=== PATIENT | female | born 1970 | race Caucasian/White ===

== ENCOUNTER → 2018-05-06 | Outpatient (CLI) | payer OTHER | LOC: M.RAD 15:12 | DX: Z12.31 Encounter for screening mammogram for malignant neoplasm of breast (principal) ==

== ENCOUNTER → 2019-05-11 | Outpatient (CLI) | payer OTHER | LOC: M.RAD 15:09 | DX: Z12.31 Encounter for screening mammogram for malignant neoplasm of breast (principal) ==

== ENCOUNTER 2019-11-05 17:28 | Emergency (ER) | payer OTHER ==
[~2019-11-05] VITALS: Ht 154.9 cm; Wt 72.6 kg
[2019-11-05] MEDS ORDERED: NEURONTIN300 MG PO (17:37)
[2019-11-05] MEDS ORDERED: HYDROXYZINE HCL25 M2 PO (18:17)
[2019-11-05] MEDS ORDERED: PREDNISONE50 MG PO (18:17)
[2019-11-05 18:25] VITALS: BP 192/93
== END 2019-11-05 18:29 | disposition home or self-care (01) ==
LOC: M.ERS 17:28
DX: L25.9 Unspecified contact dermatitis, unspecified cause (principal)

== ENCOUNTER → 2020-06-19 | Outpatient (CLI) | payer OTHER ==
[~2020-06-19] MED LIST: HYDROXYZINE HCL25 M2 PO; NEURONTIN300 MG PO; PREDNISONE50 MG PO
== END ==
LOC: M.RAD 15:03
PROVIDERS: ATTEND Registered Nurse Diabetes Educator
DX: Z12.31 Encounter for screening mammogram for malignant neoplasm of breast (principal)

== ENCOUNTER → 2021-07-09 | Outpatient (CLI) | payer OTHER | LOC: M.RAD 07-08 15:00 | PROVIDERS: ATTEND Registered Nurse Diabetes Educator | DX: Z12.31 Encounter for screening mammogram for malignant neoplasm of breast (principal) ==